=== PATIENT | male | born 1950 | race Caucasian/White ===

== ENCOUNTER 2016-10-17 11:51 | Inpatient (IN) | payer MEDICARE, BC ==
[~2016-10-17] VITALS: Ht 180.3 cm; Wt 122.6 kg
[~2016-10-17 11:51] MED LIST: ALDACTONE25 MG PO; ASPIR 8181 MG PO; COREG 25MG TAB25 MG PO; DIGITEK125 MCG PO; ELIQUIS5 MG PO; FLAGYL500 MG PO; FUROSEMIDE80 MG PO; IMDUR ER TAB 6060 MG PO; INVOKANA300 MG PO; LEVAQUIN500 MG PO; LEVEMIR FL100 UNIT/1 SC; LEVOTHYROXINE125 MCG PO; LIPITOR TAB 2020 MG PO; METOLAZONE5 MG PO; NITROGLYCERIN0.4 MG SL; NOVOLOG FL100 UNIT/1 SQ; RANEXA1000 MG PO; TOUJEO SQ; TYLENOL W/CODEIN1 E1 PO; VITAMIN D50000 UNIT PO
[2016-10-17 12:47] LABS: HEMOGLOBIN 9.9 gm/dl (14.0-17.5); RED BLOOD COUNT 3.29 M/UL (4.20-5.50); WHITE BLOOD COUNT 11.3 K/UL (4.5-11.0)
[2016-10-17] MEDS ORDERED: NOVOLOG 10100 UNITS1 SC (21:56)
[2016-10-17] MEDS ORDERED: TOUJEO SC (21:58)
[2016-10-17] MEDS ORDERED: RANEXA1000 MG PO (21:58)
[2016-10-17] MEDS ORDERED: IMDUR ER TAB 3030 MG PO (21:59)
[2016-10-17] MEDS ORDERED: COREG 25MG TAB25 MG PO (21:59)
[2016-10-17] MEDS ORDERED: ALDACTONE25 MG PO (21:59)
[2016-10-17] MEDS ORDERED: LASIX80 MG PO (22:00)
[2016-10-17] MEDS ORDERED: ELIQUIS 5 MG TAB5 MG PO (22:00)
[2016-10-17] MEDS ORDERED: SYNTHROID 137137 MCG PO (22:01)
[2016-10-17] MEDS ORDERED: VIBRAMYCIN 100100 MG PO (22:01)
[2016-10-18 06:59] LABS: HEMOGLOBIN 9.4 gm/dl (14.0-17.5); RED BLOOD COUNT 3.11 M/UL (4.20-5.50); WHITE BLOOD COUNT 12.5 K/UL (4.5-11.0)
[2016-10-19 05:33] LABS: HEMOGLOBIN 8.9 gm/dl (14.0-17.5); RED BLOOD COUNT 2.97 M/UL (4.20-5.50); WHITE BLOOD COUNT 13.6 K/UL (4.5-11.0)
[2016-10-20 07:23] LABS: HEMOGLOBIN 9.5 gm/dl (14.0-17.5); RED BLOOD COUNT 3.17 M/UL (4.20-5.50)
[2016-10-20 07:24] LABS: WHITE BLOOD COUNT 17.8 K/UL (4.5-11.0)
[2016-10-21 05:58] LABS: HEMOGLOBIN 9.6 gm/dl (14.0-17.5); RED BLOOD COUNT 3.1 M/UL (4.20-5.50); WHITE BLOOD COUNT 15.3 K/UL (4.5-11.0)
[2016-10-22 06:20] LABS: HEMOGLOBIN 9.7 gm/dl (14.0-17.5); RED BLOOD COUNT 3.21 M/UL (4.20-5.50); WHITE BLOOD COUNT 13.3 K/UL (4.5-11.0)
[2016-10-22 06:40] LABS: BUN/CREATININE RATIO 32 (0-10)
[2016-10-23 03:22] LABS: HEMOGLOBIN 10.4 gm/dl (14.0-17.5); RED BLOOD COUNT 3.39 M/UL (4.20-5.50); WHITE BLOOD COUNT 12.4 K/UL (4.5-11.0)
[2016-10-23] MEDS ORDERED: ACTIGALL 300MG300 MG PO (10:32)
[2016-10-23] MEDS ORDERED: AUGMENTIN 500-500 MG PO (10:33)
[2016-10-23 11:52] LABS: URINE TOTAL PROTEIN 49 mg/dl
== END 2016-10-23 11:45 | disposition home or self-care (01) | DRG 291 ==
LOC: ER1 11:51 → MED SURG 4 16:49 → ZEROF 16:49 → MED SURG 4 21:11
PROVIDERS: Emergency Medicine; Family Medicine; ADMIT Internal Medicine
DX: I13.0 Hypertensive heart and chronic kidney disease with heart failure and stage 1 through stage 4 chronic kidney disease, or unspecified chronic kidney disease (principal); I50.23 Acute on chronic systolic (congestive) heart failure; K57.92 Diverticulitis of intestine, part unspecified, without perforation or abscess without bleeding; N18.3 Chronic kidney disease, stage 3 (moderate); Z95.810 Presence of automatic (implantable) cardiac defibrillator; I25.10 Atherosclerotic heart disease of native coronary artery without angina pectoris; E11.22 Type 2 diabetes mellitus with diabetic chronic kidney disease; E78.00 Pure hypercholesterolemia, unspecified; K80.20 Calculus of gallbladder without cholecystitis without obstruction; Z95.1 Presence of aortocoronary bypass graft; Z95.5 Presence of coronary angioplasty implant and graft; Z82.49 Family history of ischemic heart disease and other diseases of the circulatory system; R42 Dizziness and giddiness; R55 Syncope and collapse; S00.33XA Contusion of nose, initial encounter; S00.83XA Contusion of other part of head, initial encounter; W19.XXXA Unspecified fall, initial encounter; R11.0 Nausea; R79.89 Other specified abnormal findings of blood chemistry; Z79.899 Other long term (current) drug therapy; Z79.4 Long term (current) use of insulin; Z79.82 Long term (current) use of aspirin
CPT/HCPCS: 36415; 70450; 71010; 76705; 78226; 80048; 80053; 80076; 80162; 81001; 82150; 82550; 82553; 82962; 83605; 83690; 83874; 83880; 84156; 84484; 85025; 85027; 85610; 85730; 87040; 87086; 93005; 96374; 97110; 97116; 99285; A9537; J1940; J1956; J2543; J7030; J7050

== ENCOUNTER 2016-11-17 20:26 | Inpatient (IN) | payer MEDICARE, BC ==
[~2016-11-17] VITALS: Ht 180.3 cm; Wt 114.8 kg
[~2016-11-17 20:26] MED LIST changes: +ACTIGALL 300MG300 MG PO; +AUGMENTIN 500-500 MG PO; +ELIQUIS 5 MG TAB5 MG PO; +IMDUR ER TAB 3030 MG PO; +LASIX80 MG PO; +NOVOLOG 10100 UNITS1 SC; +SYNTHROID 137137 MCG PO; +TOUJEO SC; +VIBRAMYCIN 100100 MG PO
[2016-11-17 22:29] LABS: HEMOGLOBIN 11.9 gm/dl (14.0-17.5); RED BLOOD COUNT 3.85 M/UL (4.20-5.50); WHITE BLOOD COUNT 9.2 K/UL (4.5-11.0)
[2016-11-17 22:52] LABS: BUN/CREATININE RATIO 24 (0-10)
[2016-11-18] MEDS ORDERED: LANOXIN TAB0.125 MG PO (15:30)
[2016-11-18] MEDS ORDERED: LASIX80 MG PO (15:31)
[2016-11-18] MEDS ORDERED: NOVOLOG 10100 UNITS/ SQ (15:33)
[2016-11-18] MEDS ORDERED: LEVEMIR100 UNIT/1 SQ (15:34)
[2016-11-19 03:35] LABS: HEMOGLOBIN 10.6 gm/dl (14.0-17.5); RED BLOOD COUNT 3.49 M/UL (4.20-5.50)
[2016-11-20 04:08] LABS: RED BLOOD COUNT 3.59 M/UL (4.20-5.50); WHITE BLOOD COUNT 8.9 K/UL (4.5-11.0)
[2016-11-20] MEDS ORDERED: CORDARONE 200M200 MG PO (09:55)
== END 2016-11-20 12:20 | disposition home or self-care (01) | DRG 309 ==
LOC: ER1 20:26 → ZEROF 11-18 01:40 → CCU 11-18 15:22
PROVIDERS: Family Medicine; ADMIT Internal Medicine
DX: I49.01 Ventricular fibrillation (principal); I50.22 Chronic systolic (congestive) heart failure; I13.0 Hypertensive heart and chronic kidney disease with heart failure and stage 1 through stage 4 chronic kidney disease, or unspecified chronic kidney disease; I25.5 Ischemic cardiomyopathy; I25.10 Atherosclerotic heart disease of native coronary artery without angina pectoris; Z95.1 Presence of aortocoronary bypass graft; Z95.5 Presence of coronary angioplasty implant and graft; I48.0 Paroxysmal atrial fibrillation; Z79.01 Long term (current) use of anticoagulants; E11.22 Type 2 diabetes mellitus with diabetic chronic kidney disease; Z79.4 Long term (current) use of insulin; N18.3 Chronic kidney disease, stage 3 (moderate); E78.5 Hyperlipidemia, unspecified; E03.9 Hypothyroidism, unspecified; E66.9 Obesity, unspecified; Z82.49 Family history of ischemic heart disease and other diseases of the circulatory system; Z83.3 Family history of diabetes mellitus; Z88.8 Allergy status to other drugs, medicaments and biological substances; Z79.899 Other long term (current) drug therapy; I25.2 Old myocardial infarction; Z68.35 Body mass index [BMI] 35.0-35.9, adult; Z95.810 Presence of automatic (implantable) cardiac defibrillator; E11.65 Type 2 diabetes mellitus with hyperglycemia
CPT/HCPCS: 36415; 71010; 80048; 80053; 80076; 80162; 82550; 82553; 82962; 83874; 84439; 84443; 84484; 85025; 85027; 93005; 96374; 99291

== ENCOUNTER → 2016-12-25 | Outpatient (CLI) | payer MEDICARE, BC ==
[~2016-12-25] MED LIST changes: +CORDARONE 200M200 MG PO; +LANOXIN TAB0.125 MG PO; +LEVEMIR100 UNIT/1 SQ; +NOVOLOG 10100 UNITS/ SQ
== END ==
LOC: LAB 11:39
PROVIDERS: Internal Medicine Nephrology
DX: N18.3 Chronic kidney disease, stage 3 (moderate) (principal)
CPT/HCPCS: 36415; 80053; 82570; 84156